=== PATIENT | female | born 1985 | race Caucasian/White ===

== ENCOUNTER 2016-10-10 08:04 | Outpatient (CLI) | payer OTHER ==
[~2016-10-10] VITALS: Ht 162.6 cm; Wt 108.2 kg
[2016-10-10 08:23] VITALS: BP 118/66
[2016-10-10 09:42] LABS: EOSINOPHIL (%) 0.7 % (0-5); EOSINOPHIL COUNT 0.1 K/uL (0-0.3); HEMATOCRIT 33.3 % (36.0-46.0); IMMATURE GRANULOCYTE (%) 0.7 % (0.0-0.7); IMMATURE GRANULOCYTE COUNT 0.1 K/uL; INSTRUMENT ABS NEUTROPHIL CT 12.5 K/uL; LYMPHOCYTE COUNT 1.7 K/uL (1.0-2.8); MCH 26.8 PG (29.0-34.0); MCHC 32.4 G/DL (30.0-36.0); MCV 82.6 FL (83-99); MEAN PLAT.VOLUME 8.7 uM^3 (9.5-12.4); MONOCYTE (%) 4.4 % (3-12); MONOCYTE COUNT 0.7 K/uL (0-0.8); NEUTROPHIL (%) 83.1 % (45-76); NEUTROPHIL COUNT 12.5 K/uL (1.8-6.4); PLATELET COUNT 343 K/uL (156-360); RBC DIS.WIDTH-CV 12.6 % (11.8-14.6); RBC DIS.WIDTH-SD 38.1 % (39-53); RED BLOOD COUNT 4.03 M/uL (3.80-5.20); WHITE BLOOD COUNT 15.1 K/uL (4.1-10.2)
[2016-10-10 10:02] VITALS: BP 113/55
[2016-10-10 10:53] LABS: AMPHETAMINES QUANT VALUE 0 NG/ML; BARBITUATES QUANT VALUE 0 NG/ML; BENZODIAZEPINES QUANT VALUE 0 NG/ML; BENZODIAZEPINES, URINE SCREEN Negative (200 ng/mL); MARIJUANA QUANT VALUE 0 NG/ML; OPIATES QUANTITATIVE VALUE 0 NG/ML; PHENCYCLIDINE QUANT VALUE 0 NG/ML
[2016-10-10 13:52] VITALS: BP 93/49
[2016-10-10 16:45] VITALS: BP 110/59
[2016-10-10 21:36] LABS: CANDIDA DNA PROBE NEGATIVE; GARDNERELLA DNA PROBE NEGATIVE; INTERNAL CONTROL VALID? YES
[2016-10-12 13:46] LABS: CHLAMYDIA TRACHOMATIS NEGATIVE; NEISSERIA GONORRHOEAE NEGATIVE
== END 2016-10-10 17:22 | disposition home or self-care (01) ==
LOC: LDRP-OP → 2WEST 08:05 → LDRP-OP 01-29 16:23
PROVIDERS: Advanced Practice Midwife; Obstetrics & Gynecology
DX: O46.92 Antepartum hemorrhage, unspecified, second trimester (principal); Z3A.28 28 weeks gestation of pregnancy; O09.812 Supervision of pregnancy resulting from assisted reproductive technology, second trimester
CPT/HCPCS: 59025; 76815; 80306 90; 85025; 86850; 86900; 86901; 87086; 87480; 87491; 87510; 87591; 87660; G0378; J0702; J7120

== ENCOUNTER 2016-10-20 22:37 | Outpatient (CLI) | payer OTHER ==
[2016-10-20 22:58] VITALS: BP 140/80
[2016-10-21] LABS: EOSINOPHIL (%) 0.6 % (0-5); EOSINOPHIL COUNT 0.1 K/uL (0-0.3); HEMATOCRIT 30.3 % (36.0-46.0); IMMATURE GRANULOCYTE (%) 0.8 % (0.0-0.7); IMMATURE GRANULOCYTE COUNT 0.1 K/uL; INSTRUMENT ABS NEUTROPHIL CT 12.4 K/uL; LYMPHOCYTE COUNT 2.7 K/uL (1.0-2.8); MCH 26.7 PG (29.0-34.0); MCHC 32.3 G/DL (30.0-36.0); MCV 82.6 FL (83-99); MEAN PLAT.VOLUME 8.6 uM^3 (9.5-12.4); MONOCYTE (%) 5.8 % (3-12); MONOCYTE COUNT 0.9 K/uL (0-0.8); NEUTROPHIL (%) 76.1 % (45-76); NEUTROPHIL COUNT 12.4 K/uL (1.8-6.4); PLATELET COUNT 315 K/uL (156-360); RBC DIS.WIDTH-CV 12.8 % (11.8-14.6); RBC DIS.WIDTH-SD 38.5 % (39-53); RED BLOOD COUNT 3.67 M/uL (3.80-5.20); WHITE BLOOD COUNT 16.3 K/uL (4.1-10.2)
[2016-10-21 00:04] VITALS: BP 96/46
[2016-10-21 03:15] VITALS: BP 119/56
[2016-10-21 08:25] VITALS: BP 117/61
[2016-10-21] MEDS ORDERED: PRENATAL TABLE1 EACH PO (10:53)
[2016-10-21] MEDS ORDERED: ZYRTEC10 M2 PO (10:54)
[2016-10-21 10:56] VITALS: BP 110/56
[2016-10-21 15:21] VITALS: BP 120/64
== END 2016-10-21 17:35 | disposition home or self-care (01) ==
LOC: LDRP-OP 22:37 → 2WEST 22:38 → LDRP-OP 01-29 19:02
PROVIDERS: Advanced Practice Midwife
DX: O46.8X3 Other antepartum hemorrhage, third trimester (principal); Z3A.30 30 weeks gestation of pregnancy; O09.813 Supervision of pregnancy resulting from assisted reproductive technology, third trimester
CPT/HCPCS: 59025; 76805; 85025; G0378

== ENCOUNTER 2016-11-17 22:18 | Outpatient (CLI) | payer OTHER ==
[~2016-11-17 22:18] MED LIST: PRENATAL TABLE1 EACH PO; ZYRTEC10 M2 PO
[2016-11-17 22:43] VITALS: BP 131/59
[2016-11-17 23:35] LABS: EOSINOPHIL (%) 0.6 % (0-5); EOSINOPHIL COUNT 0.1 K/uL (0-0.3); HEMATOCRIT 32.6 % (36.0-46.0); IMMATURE GRANULOCYTE (%) 0.6 % (0.0-0.7); IMMATURE GRANULOCYTE COUNT 0.1 K/uL; INSTRUMENT ABS NEUTROPHIL CT 10.8 K/uL; LYMPHOCYTE COUNT 2.6 K/uL (1.0-2.8); MCH 26.1 PG (29.0-34.0); MCHC 31.9 G/DL (30.0-36.0); MCV 81.9 FL (83-99); MONOCYTE (%) 6.7 % (3-12); NEUTROPHIL (%) 74.4 % (45-76); NEUTROPHIL COUNT 10.8 K/uL (1.8-6.4); RBC DIS.WIDTH-CV 12.9 % (11.8-14.6); RBC DIS.WIDTH-SD 38.5 % (39-53); RED BLOOD COUNT 3.98 M/uL (3.80-5.20); WHITE BLOOD COUNT 14.5 K/uL (4.1-10.2)
[2016-11-18 02:28] LABS: MEAN PLAT.VOLUME 10.7 uM^3 (9.5-12.4); PLAT.SUFFICIENCY ADEQUATE; PLATELET COUNT 251 K/uL (156-360)
[2016-11-18 07:37] VITALS: BP 113/57
[2016-11-18 11:29] VITALS: BP 107/54
[2016-11-18 13:37] LABS: AMPHETAMINES QUANT VALUE 0 NG/ML; BARBITUATES QUANT VALUE 0 NG/ML; BENZODIAZEPINES QUANT VALUE 0 NG/ML; BENZODIAZEPINES, URINE SCREEN Negative (200 ng/mL); MARIJUANA QUANT VALUE 0 NG/ML; OPIATES QUANTITATIVE VALUE 0 NG/ML; PHENCYCLIDINE QUANT VALUE 0 NG/ML
[2016-11-18 15:00] VITALS: BP 112/54
[2016-11-18 19:15] LABS: PROTHROMBIN TIME 9.7 (9.2-11.2); PTT 28.6 (25-32)
[2016-11-18 19:28] VITALS: BP 120/65
[2016-11-18 21:29] LABS: FIBRINOGEN 500 MG/DL (160-450)
[2016-11-18 23:10] VITALS: BP 109/55
[2016-11-19 03:00] VITALS: BP 88/49
[2016-11-19 07:22] VITALS: BP 113/64
== END 2016-11-19 12:10 | disposition home or self-care (01) ==
LOC: LDRP-OP 22:18 → 2WEST 22:20 → LDRP-OP 01-29 12:41
PROVIDERS: Advanced Practice Midwife; Obstetrics & Gynecology
DX: O46.93 Antepartum hemorrhage, unspecified, third trimester (principal); Z3A.34 34 weeks gestation of pregnancy; O09.813 Supervision of pregnancy resulting from assisted reproductive technology, third trimester
CPT/HCPCS: 59025; 76815; 76818; 80306 90; 85025; 85384; 85610; 85730; 86900; 86901; G0378; J7120

== ENCOUNTER 2016-11-20 09:16 | Outpatient (CLI) | payer OTHER ==
[~2016-11-20] VITALS: Ht 162.6 cm; Wt 113.3 kg
[2016-11-20 09:28] VITALS: BP 118/62
== END 2016-11-20 10:26 | disposition home or self-care (01) ==
LOC: LDRP-OP 09:16 → 2WEST 09:17 → LDRP-OP 01-29 05:48
DX: O26.893 Other specified pregnancy related conditions, third trimester (principal); Z3A.34 34 weeks gestation of pregnancy
CPT/HCPCS: 59025; G0378

== ENCOUNTER 2016-11-21 09:13 | Outpatient (CLI) | payer OTHER ==
[~2016-11-21] VITALS: Ht 162.6 cm; Wt 113.0 kg
[2016-11-21 09:28] VITALS: BP 113/71
== END 2016-11-21 10:17 | disposition home or self-care (01) ==
LOC: LDRP-OP 09:13 → 2WEST 09:14 → LDRP-OP 01-29 14:18
DX: O46.93 Antepartum hemorrhage, unspecified, third trimester (principal); Z3A.34 34 weeks gestation of pregnancy; O09.813 Supervision of pregnancy resulting from assisted reproductive technology, third trimester
CPT/HCPCS: 59025; G0378

== ENCOUNTER 2016-11-22 09:05 | Outpatient (CLI) | payer OTHER ==
[~2016-11-22] VITALS: Ht 162.6 cm; Wt 113.4 kg
[2016-11-22 09:21] VITALS: BP 100/70
== END 2016-11-22 11:55 | disposition home or self-care (01) ==
LOC: LDRP-OP 09:05 → 2WEST 09:06 → LDRP-OP 12:06
DX: O46.93 Antepartum hemorrhage, unspecified, third trimester (principal); Z3A.34 34 weeks gestation of pregnancy; O09.813 Supervision of pregnancy resulting from assisted reproductive technology, third trimester
CPT/HCPCS: 59025; 76818; G0378

== ENCOUNTER 2016-11-26 08:51 | Outpatient (CLI) | payer OTHER ==
[2016-11-26 09:15] VITALS: BP 107/67
[2016-11-26 10:36] VITALS: BP 111/79
== END 2016-11-26 10:56 | disposition home or self-care (01) ==
LOC: LDRP-OP 08:51 → 2WEST 08:52 → LDRP-OP 01-29 12:56
DX: O46.93 Antepartum hemorrhage, unspecified, third trimester (principal); Z3A.35 35 weeks gestation of pregnancy
CPT/HCPCS: 59025; G0378

== ENCOUNTER 2016-12-08 06:56 | Inpatient (IN) | payer OTHER ==
[2016-12-08] VITALS (17 sets, daily range): BP systolic 101–139; BP diastolic 53–88
[~2016-12-08] VITALS: Ht 162.6 cm; Wt 113.4 kg
[2016-12-08 08:58] LABS: EOSINOPHIL (%) 1.1 % (0-5); EOSINOPHIL COUNT 0.1 K/uL (0-0.3); HEMATOCRIT 35.2 % (36.0-46.0); IMMATURE GRANULOCYTE (%) 1.1 % (0.0-0.7); IMMATURE GRANULOCYTE COUNT 0.1 K/uL; INSTRUMENT ABS NEUTROPHIL CT 9.2 K/uL; LYMPHOCYTE COUNT 2.2 K/uL (1.0-2.8); MCH 25.5 PG (29.0-34.0); MCHC 31.3 G/DL (30.0-36.0); MCV 81.5 FL (83-99); MEAN PLAT.VOLUME 9.4 uM^3 (9.5-12.4); MONOCYTE (%) 6.1 % (3-12); MONOCYTE COUNT 0.8 K/uL (0-0.8); NEUTROPHIL (%) 73.9 % (45-76); NEUTROPHIL COUNT 9.2 K/uL (1.8-6.4); PLATELET COUNT 311 K/uL (156-360); RBC DIS.WIDTH-CV 13.7 % (11.8-14.6); RBC DIS.WIDTH-SD 40.4 % (39-53); RED BLOOD COUNT 4.32 M/uL (3.80-5.20); WHITE BLOOD COUNT 12.5 K/uL (4.1-10.2)
[2016-12-08 21:20] LABS: EOSINOPHIL (%) 0.9 % (0-5); EOSINOPHIL COUNT 0.1 K/uL (0-0.3); HEMATOCRIT 32.4 % (36.0-46.0); IMMATURE GRANULOCYTE (%) 0.7 % (0.0-0.7); IMMATURE GRANULOCYTE COUNT 0.1 K/uL; LYMPHOCYTE COUNT 2.4 K/uL (1.0-2.8); MCH 26.2 PG (29.0-34.0); MCHC 32.4 G/DL (30.0-36.0); MCV 80.8 FL (83-99); MEAN PLAT.VOLUME 9.4 uM^3 (9.5-12.4); MONOCYTE (%) 6.2 % (3-12); MONOCYTE COUNT 0.9 K/uL (0-0.8); NEUTROPHIL (%) 75.6 % (45-76); PLATELET COUNT 291 K/uL (156-360); RBC DIS.WIDTH-CV 13.9 % (11.8-14.6); RBC DIS.WIDTH-SD 40.4 % (39-53); RED BLOOD COUNT 4.01 M/uL (3.80-5.20); WHITE BLOOD COUNT 14.6 K/uL (4.1-10.2)
[2016-12-09 00:46] VITALS: BP 126/60
[2016-12-09 02:16] VITALS: BP 96/49
[2016-12-09 04:14] VITALS: BP 113/50
[2016-12-09 06:10] VITALS: BP 123/61
[2016-12-09 07:49] LABS: EOSINOPHIL (%) 0.1 % (0-5); HEMATOCRIT 25.4 % (36.0-46.0); IMMATURE GRANULOCYTE (%) 0.7 % (0.0-0.7); IMMATURE GRANULOCYTE COUNT 0.1 K/uL; INSTRUMENT ABS NEUTROPHIL CT 14.9 K/uL; LYMPHOCYTE COUNT 1.9 K/uL (1.0-2.8); MCH 26.1 PG (29.0-34.0); MCHC 31.5 G/DL (30.0-36.0); MCV 82.7 FL (83-99); MEAN PLAT.VOLUME 9.6 uM^3 (9.5-12.4); MONOCYTE (%) 4.7 % (3-12); MONOCYTE COUNT 0.8 K/uL (0-0.8); NEUTROPHIL (%) 83.6 % (45-76); NEUTROPHIL COUNT 14.9 K/uL (1.8-6.4); PLATELET COUNT 268 K/uL (156-360); RBC DIS.WIDTH-SD 41.5 % (39-53); WHITE BLOOD COUNT 17.8 K/uL (4.1-10.2)
[2016-12-09 07:50] LABS: RED BLOOD COUNT 3.07 M/uL (3.80-5.20)
[2016-12-09 07:52] VITALS: BP 100/56
[2016-12-09 10:30] VITALS: BP 111/64
[2016-12-10] VITALS (8 sets, daily range): BP systolic 98–128; BP diastolic 54–77
[2016-12-10 07:23] LABS: EOSINOPHIL (%) 0.9 % (0-5); EOSINOPHIL COUNT 0.2 K/uL (0-0.3); HEMATOCRIT 21.2 % (36.0-46.0); IMMATURE GRANULOCYTE (%) 0.9 % (0.0-0.7); IMMATURE GRANULOCYTE COUNT 0.2 K/uL; INSTRUMENT ABS NEUTROPHIL CT 11.8 K/uL; LYMPHOCYTE COUNT 2.9 K/uL (1.0-2.8); MCH 26.5 PG (29.0-34.0); MCHC 32.1 G/DL (30.0-36.0); MCV 82.5 FL (83-99); MEAN PLAT.VOLUME 9.3 uM^3 (9.5-12.4); MONOCYTE (%) 5.4 % (3-12); MONOCYTE COUNT 0.9 K/uL (0-0.8); NEUTROPHIL (%) 74.2 % (45-76); NEUTROPHIL COUNT 11.8 K/uL (1.8-6.4); PLATELET COUNT 229 K/uL (156-360); RBC DIS.WIDTH-CV 14.2 % (11.8-14.6); RBC DIS.WIDTH-SD 42.2 % (39-53); RED BLOOD COUNT 2.57 M/uL (3.80-5.20); WHITE BLOOD COUNT 15.9 K/uL (4.1-10.2)
[2016-12-10 20:53] LABS: EOSINOPHIL COUNT 0.2 K/uL (0-0.3); HEMATOCRIT 23.8 % (36.0-46.0); IMMATURE GRANULOCYTE COUNT 0.2 K/uL; INSTRUMENT ABS NEUTROPHIL CT 14.5 K/uL; LYMPHOCYTE COUNT 2.9 K/uL (1.0-2.8); MCH 27.7 PG (29.0-34.0); MCHC 33.2 G/DL (30.0-36.0); MCV 83.5 FL (83-99); MEAN PLAT.VOLUME 9.4 uM^3 (9.5-12.4); MONOCYTE (%) 5.3 % (3-12); NEUTROPHIL COUNT 14.5 K/uL (1.8-6.4); PLATELET COUNT 266 K/uL (156-360); RBC DIS.WIDTH-CV 14.4 % (11.8-14.6); RBC DIS.WIDTH-SD 43.2 % (39-53); RED BLOOD COUNT 2.85 M/uL (3.80-5.20); WHITE BLOOD COUNT 18.8 K/uL (4.1-10.2)
[2016-12-11 03:00] VITALS: BP 108/51
[2016-12-11 19:25] VITALS: BP 124/59
[2016-12-11 22:55] VITALS: BP 108/59
[2016-12-12 03:01] VITALS: BP 133/62
[2016-12-12 07:45] VITALS: BP 127/68
[2016-12-12 10:39] VITALS: BP 123/62
[2016-12-12] MEDS ORDERED: CHROMAGEN,1 CAPSULE PO (14:15)
[2016-12-12] MEDS ORDERED: IBUPROFEN800 MG PO (14:15)
[2016-12-12] MEDS ORDERED: ENDOCET 5-3251 EACH PO (14:15)
== END 2016-12-12 18:00 | disposition home or self-care (01) | DRG 765 ==
LOC: LDRP-OP 06:56 → 2WEST 06:57 → LDRP-OP 08:00 → 2WEST 22:47 → LDRP-OP 01-29 11:02
PROVIDERS: Obstetrics & Gynecology; Obstetrics & Gynecology Obstetrics
PROC: 10D00Z1 Extraction of Products of Conception, Low, Open Approach (ICD-10-PCS; principal; 2016-12-08)
PROC: 3E0P7GC Introduction of Other Therapeutic Substance into Female Reproductive, Via Natural or Artificial Opening (ICD-10-PCS; 2016-12-08)
DX: O45.93 Premature separation of placenta, unspecified, third trimester (principal); O60.14X0 Preterm labor third trimester with preterm delivery third trimester, not applicable or unspecified; Z68.41 Body mass index [BMI] 40.0-44.9, adult; Z37.0 Single live birth; Z3A.37 37 weeks gestation of pregnancy; O99.214 Obesity complicating childbirth; E66.9 Obesity, unspecified; D50.9 Iron deficiency anemia, unspecified; O99.02 Anemia complicating childbirth; O61.0 Failed medical induction of labor; O09.813 Supervision of pregnancy resulting from assisted reproductive technology, third trimester
CPT/HCPCS: 85025; 85025 91; 86900; 86901; 86920; 88307; J0690; J2250; J2274; J2405; J2590; J7040; J7120; P9016

== ENCOUNTER 2017-11-03 07:36 | Day surgery (SDC) | payer BC ==
[~2017-11-03] VITALS: Ht 165.1 cm; Wt 101.1 kg
[~2017-11-03 07:36] MED LIST changes: +CHROMAGEN,1 CAPSULE PO; +ENDOCET 5-3251 EACH PO; +IBUPROFEN800 MG PO; +VITAMIN D31000 UNI2 PO; +VITRON-C TABLE1 EACH PO
[2017-11-03] MEDS ORDERED: MOTRIN800 MG PO (10:58)
[2017-11-03] MEDS ORDERED: NORCO 5/3251 TABLET PO (10:58)
[2017-11-03 11:35] VITALS: BP 141/81
[2017-11-03 12:06] VITALS: BP 124/72
== END 2017-11-03 12:10 | disposition home or self-care (01) ==
LOC: SDC 07:36
DX: N93.8 Other specified abnormal uterine and vaginal bleeding (principal); N92.1 Excessive and frequent menstruation with irregular cycle; E28.2 Polycystic ovarian syndrome; E66.01 Morbid (severe) obesity due to excess calories; Z68.37 Body mass index [BMI] 37.0-37.9, adult
CPT/HCPCS: 88305; J0690; J1100; J2250; J2405; J3010